=== PATIENT | female | born 1990 | race Caucasian/White ===

== ENCOUNTER → 2016-09-30 | Outpatient (CLI) | payer OTHER ==
--- NOTE | 2016-10-01 02:45 | REP ---
Clinical: Pain. Technique: AP, lateral, bilateral oblique views right foot . Findings: The osseous structures and joint spaces are intact and normal. There is no evidence for acute fracture or dislocation. Surrounding soft tissues are unremarkable. No subcutaneous emphysema or radiodense foreign body. Impression: Normal examination. No acute fracture or dislocation. Signed by Eliecer Calle MD 10/01/2016 02:35 A
== END ==
LOC: M RAD 14:17
PROVIDERS: ATTEND Nurse Practitioner Family
DX: M79.671 Pain in right foot (principal)

== ENCOUNTER → 2018-02-17 | Outpatient (CLI) | payer OTHER ==
[2018-02-17 16:26] LABS: BASO # 0.1 10^3/uL (0.0-0.2); BASO % 1.8 % (0.0-1.0); EOS # 0.1 10^3/uL (0.0-0.50); EOS % 2.1 % (0.0-3.0); HEMOGLOBIN 12.7 g/dl (12.0-15.5); IMMATURE GRANULOCYTE % 0.3 % (0-3.0); LYMPH # 2.5 10^3/uL (1.5-6.5); LYMPH % 36.5 % (24.0-44.0); MEAN CORPUSCULAR HEMOGLOBIN 28.7 pg (27.0-33.0); MEAN CORPUSCULAR HGB CONC 32.6 g/dl (32.0-36.5); MONO # 0.3 10^3/uL (0.0-0.8); MONO % 4.7 % (0.0-5.0); NEUTROPHILS # 3.7 10^3/uL (1.8-7.7); NEUTROPHILS % 54.6 % (36.0-66.0); PLATELET COUNT, AUTOMATED 239 10^3/uL (150-450); RED BLOOD COUNT 4.43 10^6/uL (4.00-5.40); RED CELL DISTRIBUTION WIDTH 12.1 % (11.5-14.5); WHITE BLOOD COUNT 6.8 10^3/uL (4.0-10.0)
[2018-02-17 17:35] LABS: ALBUMIN 4.2 GM/DL (3.2-5.2); ALBUMIN/GLOBULIN RATIO 1.45 (1.00-1.93); ALKALINE PHOSPHATASE 78 U/L (45-117); ALT/SGPT 17 U/L (12-78); ANION GAP 10 MEQ/L (8-16); AST/SGOT 14 U/L (7-37); BILIRUBIN,TOTAL 0.2 MG/DL (0.2-1.0); BLOOD UREA NITROGEN 10 MG/DL (7-18); CALCIUM LEVEL 8.9 MG/DL (8.5-10.1); CARBON DIOXIDE LEVEL 28 MEQ/L (21-32); CHLORIDE LEVEL 108 MEQ/L (98-107); CREATININE FOR GFR 0.88 MG/DL (0.55-1.30); GLOMERULAR FILTRATION RATE > 60.0 (>60); GLUCOSE, FASTING 91 MG/DL (70-100); HCG, SERUM QUANTITATIVE < 1.0 MIU/ML; LIPASE 127 U/L (73-393); POTASSIUM SERUM 4.3 MEQ/L (3.5-5.1); SODIUM LEVEL 146 MEQ/L (136-145); TOTAL PROTEIN 7.1 GM/DL (6.4-8.2)
[2018-02-17 23:43] LABS: CHLAMYDIA DNA AMPLIFICATION NEGATIVE (NEGATIVE); GC DNA AMPLIFICATION NEGATIVE (NEGATIVE)
== END ==
LOC: M LAB 16:10
DX: R10.84 Generalized abdominal pain (principal); N89.8 Other specified noninflammatory disorders of vagina
CPT/HCPCS: 83690

== ENCOUNTER → 2018-02-19 | Outpatient (CLI) | payer OTHER | LOC: M WHC 10:29 | DX: R10.84 Generalized abdominal pain (principal) | CPT/HCPCS: 76830 ==

== ENCOUNTER → 2018-08-12 | Outpatient (CLI) | payer OTHER ==
--- NOTE | 2018-08-13 02:03 | REP ---
Clinical: Cough . Comparison: 11/15/2014 . Technique: PA and lateral. Findings: The mediastinum and cardiac silhouette are normal. The lung grimaldo are clear and without acute consolidation, effusion, or pneumothorax. The skeletal structures are intact and normal. Impression: 1. No acute cardiopulmonary process. Electronically Signed by Eliecer Calle MD 08/13/2018 01:54 A
== END ==
LOC: M RAD 10:58
PROVIDERS: ATTEND Nurse Practitioner Family
DX: R05 Cough (principal)

== ENCOUNTER → 2018-10-01 | Outpatient (CLI) | payer OTHER ==
[2018-10-01 18:29] LABS: APPEARANCE, URINE CLEAR (CLEAR); BACTERIA, URINE AUTO NEGATIVE (NEGATIVE); BILIRUBIN, URINE AUTO NEGATIVE (NEGATIVE); BLOOD, URINE BLOOD NEGATIVE (NEGATIVE); COLOR, URINE YELLOW (YELLOW); GLUCOSE, URINE (UA) AUTO NEGATIVE (NEGATIVE); KETONE, URINE AUTO NEGATIVE (NEGATIVE); LEUKOCYTE ESTERASE, URINE AUTO NEGATIVE (NEGATIVE); MUCUS, URINE SMALL (NEGATIVE); NITRITE, URINE AUTO NEGATIVE (NEGATIVE); PROTEIN, URINE AUTO NEGATIVE (NEGATIVE); RBC, URINE AUTO 1 /HPF (0-3); SPECIFIC GRAVITY URINE AUTO 1.021 (1.002-1.035); SQUAMOUS EPITHELIAL CELL UR AU 2 /HPF (0-6); UROBILINOGEN, URINE AUTO 0.2 mg/dL (0.0-2.0); WBC, URINE AUTO 2 /HPF (0-3)
--- NOTE | 2018-10-02 01:17 | REP ---
Clinical: Renal stone. Technique: Single supine view of the abdomen and pelvis. Findings: Few small 2-3 mm nonobstructing left intrarenal calculi are suggested. Possible 3 mm nonobstructing right lower pole kidney stone cannot be excluded as well. Evaluation of the ureters and bladder is limited due to overlying bowel gas pattern. No bowel obstruction. No organomegaly. Skeletal structures are intact. Impression: Possible nonobstructing bilateral intrarenal calculi. Electronically Signed by Eliecer Calle MD 10/02/2018 01:10 A
== END ==
LOC: M SMT 14:45
PROVIDERS: ATTEND Nurse Practitioner Women's Health
DX: Z87.442 Personal history of urinary calculi (principal)

== ENCOUNTER 2018-10-30 15:21 | Emergency (ER) | payer OTHER ==
[~2018-10-30] VITALS: Ht 162.6 cm; Wt 54.3 kg
[2018-10-30] MEDS ORDERED: OXYC1TAB23 (15:32)
[2018-10-30] MEDS ORDERED: CLIN300C5 (15:32)
[2018-10-30 16:48] LABS: BASO # 0.1 10^3/uL (0.0-0.2); BASO % 0.9 % (0.0-1.0); EOS % 0.3 % (0.0-3.0); HEMATOCRIT 37.1 % (36.0-47.0); HEMOGLOBIN 12.3 g/dl (12.0-15.5); LYMPH # 1.9 10^3/uL (1.5-6.5); LYMPH % 24.7 % (24.0-44.0); MEAN CORPUSCULAR HEMOGLOBIN 28.7 pg (27.0-33.0); MEAN CORPUSCULAR HGB CONC 33.2 g/dl (32.0-36.5); MEAN CORPUSCULAR VOLUME 86.7 fl (80.0-96.0); MONO # 0.3 10^3/uL (0.0-0.8); MONO % 4.4 % (0.0-5.0); NEUTROPHILS # 5.3 10^3/uL (1.8-7.7); NEUTROPHILS % 69.6 % (36.0-66.0); PLATELET COUNT, AUTOMATED 208 10^3/uL (150-450); RED BLOOD COUNT 4.28 10^6/uL (4.00-5.40); WHITE BLOOD COUNT 7.7 10^3/uL (4.0-10.0)
[2018-10-30 16:57] LABS: ALBUMIN 4.4 GM/DL (3.2-5.2); ALT/SGPT 17 U/L (12-78); BILIRUBIN,DIRECT 0.3 MG/DL (0.0-0.2); BILIRUBIN,TOTAL 0.8 MG/DL (0.2-1.0); BLOOD UREA NITROGEN 22 MG/DL (7-18); CALCIUM LEVEL 8.9 MG/DL (8.5-10.1); CARBON DIOXIDE LEVEL 25 MEQ/L (21-32); CHLORIDE LEVEL 105 MEQ/L (98-107); CREATININE FOR GFR 0.78 MG/DL (0.55-1.30); GLOMERULAR FILTRATION RATE > 60.0 (>60); GLUCOSE, FASTING 78 MG/DL (70-100); LIPASE 97 U/L (73-393); POTASSIUM SERUM 4.2 MEQ/L (3.5-5.1); SODIUM LEVEL 138 MEQ/L (136-145); TOTAL PROTEIN 7.4 GM/DL (6.4-8.2)
[2018-10-30] MEDS ORDERED: ACETAMINOPHEN TAB 650MG DOSE (2X325MG) PO ONE (17:15)
[2018-10-30 17:36] LABS: HCG, SERUM QUANTITATIVE 39 MIU/ML
--- NOTE | 2018-10-30 19:02 | REPVR ---
EXAM: US Retroperitoneal Limited, Kidneys EXAM DATE/TIME: 10/30/2018 6:00 PM CLINICAL HISTORY: 28 years old, female; Abdominal pain; ; Additional info: Vaginal bleeding TECHNIQUE: Imaging protocol: Real-time ultrasound of the retroperitoneum with image documentation. Examination was focused on the kidneys. COMPARISON: CR ABDOMEN 1 VIEW (KUB) 10/01/2018 2:56 PM FINDINGS: Right kidney measures 10.8 cm in length. Left kidney measures 10.7 cm in length. Renal parenchymal echotexture and cortical thickness are normal. No solid renal mass or cyst. Mild right pelvocaliectasis. No shadowing, echogenic foci suggestive of stones. Bladder is unremarkable. IMPRESSION: Essentially unremarkable ultrasound of the kidneys and bladder. Minimal right-sided pelvocaliectasis. No shadowing renal calculus Electronically signed by: Landry Marie On 10/30/2018 19:02:22 PM
--- NOTE | 2018-10-30 19:04 | REP ---
First trimester ultrasound History: Vaginal bleeding The uterus measures 4.4 cm in transverse by 4.1 cm in AP by 7 cm in cephalocaudal dimensions. The endometrium measures 10.2 mm. There is no gestational sac in the endometrial cavity. The right ovary measures 3.7 x 2.5 x 3.5 cm. The left ovary measures 3.3 x 2.3 x 2.6 cm. A hemorrhagic follicle is present in the left ovary. This measures 1.8 x 1.8 x 1.7 cm. A moderate amount of free fluid is present in the cul-de-sac and the adnexal regions. Impression: There is no gestational sac in the endometrial cavity. This may represent an early intra versus missed . Ectopic cannot be excluded. Repeat examination may be helpful for further evaluation. Electronically Signed by Dao Jones MD 10/30/2018 06:55 P
[2018-10-30] MEDS ORDERED: KEFL500C17 PO (19:33)
[2018-10-30 19:46] VITALS: BP 124/73
== END 2018-10-30 19:44 | disposition home or self-care (01) ==
LOC: M ED 15:21
DX: Z32.01 Encounter for pregnancy test, result positive (principal); N12 Tubulo-interstitial nephritis, not specified as acute or chronic; K21.9 Gastro-esophageal reflux disease without esophagitis; Z88.8 Allergy status to other drugs, medicaments and biological substances

== ENCOUNTER → 2018-11-02 | Outpatient (CLI) | payer OTHER ==
[~2018-11-02] MED LIST: CLIN300C5; KEFL500C17 PO; OXYC1TAB23
== END ==
LOC: M LAB 15:55
PROVIDERS: ATTEND Obstetrics & Gynecology
DX: Z36.89 Encounter for other specified antenatal screening (principal); Z3A.01 Less than 8 weeks gestation of pregnancy

== ENCOUNTER → 2019-04-20 | Outpatient (REF) | payer OTHER | LOC: M SFHCPLAZ 09:47 | PROVIDERS: ATTEND Student in an Organized Health Care Education/Training Program | DX: N20.0 Calculus of kidney (principal) ==

== ENCOUNTER → 2019-04-28 | Outpatient (CLI) | payer OTHER, MEDICAID ==
--- NOTE | 2019-04-28 13:46 | REP ---
Clinical: Kidney stone. Technique: Real time mercedes scale ultrasound examination using curved array transducer. Findings: Right kidney measures 11.7 x 6.8 x 4.1 cm and demonstrates mild hydronephrosis along with suspected 15 mm lower pole calculus and 1.4 cm lower pole cyst with possible layering milk of calcium. The left kidney is normal in appearance without hydronephrosis, cyst or nephrolithiasis and measures 11.2 x 4.8 x 5.6 cm. Bladder is relatively normal and bilateral ureteral jets are identified. Intrauterine at approximately 27 weeks noted. heart rate equals 131 beats per minute. Impression: 1. Right-sided nephrolithiasis as described above. 2. Mild right-sided hydronephrosis is nonspecific and may be induced as a normal right ureteral jet is noted within the bladder. Electronically Signed by Eliecer Calle MD 04/28/2019 01:37 P
== END ==
LOC: M RAD 12:35
PROVIDERS: ATTEND Student in an Organized Health Care Education/Training Program
DX: O26.832 Pregnancy related renal disease, second trimester (principal); N20.0 Calculus of kidney

== ENCOUNTER → 2019-05-12 | Outpatient (REF) | payer OTHER, MEDICAID | LOC: M SFHCPLAZ 10:20 | PROVIDERS: ATTEND Family Medicine | DX: Z53.9 Procedure and treatment not carried out, unspecified reason (principal) ==

== ENCOUNTER → 2019-07-26 | Outpatient (REF) | payer MEDICAID ==
[2019-07-26 14:15] LABS: APPEARANCE, URINE CLEAR (CLEAR); BACTERIA, URINE AUTO NEGATIVE (NEGATIVE); BILIRUBIN, URINE AUTO NEGATIVE (NEGATIVE); BLOOD, URINE BLOOD 1+ (NEGATIVE); COLOR, URINE YELLOW (YELLOW); GLUCOSE, URINE (UA) AUTO NEGATIVE (NEGATIVE); KETONE, URINE AUTO NEGATIVE (NEGATIVE); LEUKOCYTE ESTERASE, URINE AUTO NEGATIVE (NEGATIVE); MUCUS, URINE SMALL (NEGATIVE); NITRITE, URINE AUTO NEGATIVE (NEGATIVE); PROTEIN, URINE AUTO NEGATIVE (NEGATIVE); RBC, URINE AUTO 10 /HPF (0-3); SQUAMOUS EPITHELIAL CELL UR AU 0 /HPF (0-6); UROBILINOGEN, URINE AUTO 0.2 mg/dL (0.0-2.0); WBC, URINE AUTO 0 /HPF (0-3)
== END ==
LOC: M SMT 13:07
PROVIDERS: ATTEND Nurse Practitioner Women's Health
DX: N20.0 Calculus of kidney (principal)

== ENCOUNTER 2019-08-19 06:50 | Day surgery (SDC) | payer MEDICAID ==
[~2019-08-19] VITALS: Ht 162.6 cm; Wt 59.4 kg
[~2019-08-19 06:50] MED LIST changes: +HM I200C PO; +LR 1,000 ML IV ONE; +TYLETAB14 PO; +ceFAZolin SOD 2 GM in IV 1 EA IV ONE
[2019-08-19 08:00] LABS: INR 0.97; PROTHROMBIN TIME 12.6 SECONDS (11.8-14.0)
[2019-08-19 08:16] LABS: HCG, SERUM QUALITATIVE NEGATIVE (NEGATIVE)
[2019-08-19] MEDS ORDERED: propofoL 500 MG/50 ML VIAL As Ordered ONE (08:39)
[2019-08-19] MEDS ORDERED: LIDOCAINE 2% INJ 100 MG/5 ML SDV (FOR ANES.) As Ordered ONE (08:39)
--- NOTE | 2019-08-19 09:47 | REP ---
KUB ABDOMEN AND PELVIS: KUB film of abdomen and pelvis performed. There are two adjacent calcifications overlying the lower pole of the right kidney, measuring 6 mm in maximum diameter. There are two or three punctate calcifications overlying the mid right kidney and a single punctate calcification overlying the upper pole of the right kidney. There is a punctate calcification seen overlying the left kidney. Bowel gas pattern is normal. IMPRESSION: Bilateral renal calculi as above. Electronically Signed by Hima Lai MD 08/19/2019 04:49 P
--- NOTE | 2019-08-19 10:00 | RO ---
DATE OF PROCEDURE: 08/19/2019 PREPROCEDURE DIAGNOSIS: Right kidney stones. POSTPROCEDURE DIAGNOSIS: Right kidney stones. PROCEDURE: Right extracorporeal shock wave lithotripsy. SURGEON: Leandro Olvera MD ART GLASS DESIGNER: None ANESTHESIA: Monitored anesthesia care (MAC). OPERATIVE INDICATIONS: This is a 29-year-old female who was found to have right-sided kidney stones measuring up to 6-7 mm in size. She was brought to the operating room today for treatment. DESCRIPTION OF PROCEDURE: The patient was brought to the operating room and MAC anesthesia was administered. Prophylactic antibiotics were infused. She was then placed in supine position in preparation first for a right-sided extracorporeal shock wave lithotripsy. Fluoroscopy was utilized to monitor stone position and fragmentation throughout the procedure. Shock waves were then delivered to the right-sided kidney stones, ungated. There were no arrhythmias. The stones did appear to fragment well. After 2500 shocks the procedure was concluded. The patient was then awakened from anesthesia and transported to the recovery room in stable condition. ESTIMATED BLOOD LOSS: 0 mL. COMPLICATIONS: None. SPECIMENS: None. PLAN: The patient will followup in clinic in a few weeks with imaging prior to assess for residual stone burden. [facility]SE[facility]
[2019-08-19] MEDS ORDERED: fentaNYL 100 MCG/2 ML INJECTION (J3010) IV PRN (10:15)
[2019-08-19] MEDS ORDERED: LR 1,000 ML IV SCH (10:15)
[2019-08-19] MEDS ORDERED: ONDANSETRON 4MG/2ML VIAL (J2405) IV PRN (10:15)
[2019-08-19] MEDS ORDERED: PERCOCET 5MG/325MG TAB PO PRN (10:15)
[2019-08-19 10:51] VITALS: BP 110/65
== END 2019-08-19 11:10 | disposition home or self-care (01) ==
LOC: M SDC 06:50
PROVIDERS: ATTEND Urology
DX: N20.0 Calculus of kidney (principal); N13.30 Unspecified hydronephrosis; J45.909 Unspecified asthma, uncomplicated; G43.909 Migraine, unspecified, not intractable, without status migrainosus; F43.10 Post-traumatic stress disorder, unspecified; F42.9 Obsessive-compulsive disorder, unspecified; M51.26 Other intervertebral disc displacement, lumbar region; K21.9 Gastro-esophageal reflux disease without esophagitis; Z87.442 Personal history of urinary calculi; Z79.899 Other long term (current) drug therapy; Z91.040 Latex allergy status; Z88.8 Allergy status to other drugs, medicaments and biological substances; Z91.048 Other nonmedicinal substance allergy status
CPT/HCPCS: 36415; 50590; 74018; 84703; 85610; J0690

== ENCOUNTER → 2021-04-09 | Outpatient (REF) | payer MEDICAID, OTHER ==
[~2021-04-09] MED LIST changes: +CLIN-250; -CLIN300C5; -HM I200C PO; +IBUP200C34 PO; -LR 1,000 ML IV ONE; -ceFAZolin SOD 2 GM in IV 1 EA IV ONE
== END ==
LOC: M WUC 19:49
PROVIDERS: ATTEND Physician Assistant
DX: J00 Acute nasopharyngitis [common cold] (principal)

== ENCOUNTER → 2021-10-17 | Outpatient (REF) | payer OTHER ==
[2021-10-17 17:18] LABS: APPEARANCE, URINE CLEAR (CLEAR); BACTERIA, URINE AUTO NEGATIVE (NEGATIVE); BILIRUBIN, URINE AUTO NEGATIVE (NEGATIVE); BLOOD, URINE BLOOD NEGATIVE (NEGATIVE); COLOR, URINE YELLOW (YELLOW); GLUCOSE, URINE (UA) AUTO NEGATIVE (NEGATIVE); KETONE, URINE AUTO NEGATIVE (NEGATIVE); LEUKOCYTE ESTERASE, URINE AUTO NEGATIVE (NEGATIVE); MUCUS, URINE SMALL (NEGATIVE); NITRITE, URINE AUTO NEGATIVE (NEGATIVE); PROTEIN, URINE AUTO NEGATIVE (NEGATIVE); RBC, URINE AUTO 6 /HPF (0-3); SPECIFIC GRAVITY URINE AUTO 1.016 (1.002-1.035); SQUAMOUS EPITHELIAL CELL UR AU 5 /HPF (0-6); UROBILINOGEN, URINE AUTO 0.2 mg/dL (0.0-2.0); WBC, URINE AUTO 2 /HPF (0-3)
== END ==
LOC: M SMT 16:43
PROVIDERS: ATTEND Nurse Practitioner Women's Health
DX: N39.0 Urinary tract infection, site not specified (principal)

== ENCOUNTER → 2022-03-05 | Outpatient (CLI) | payer OTHER | LOC: M PLAIMG 15:58 | PROVIDERS: ATTEND Student in an Organized Health Care Education/Training Program | DX: M54.42 Lumbago with sciatica, left side (principal) ==

== ENCOUNTER → 2022-04-14 | Outpatient (CLI) | payer OTHER ==
[~2022-04-14] MED LIST changes: +SERT50TA29 PO
== END ==
LOC: M LABSMTC 09:39
PROVIDERS: ATTEND Anesthesiology
DX: Z01.812 Encounter for preprocedural laboratory examination (principal); Z20.822 Contact with and (suspected) exposure to COVID-19
CPT/HCPCS: 87635; C9803

== ENCOUNTER 2022-04-17 08:07 | Day surgery (SDC) | payer OTHER ==
[~2022-04-17] VITALS: Ht 162.6 cm; Wt 53.5 kg
[~2022-04-17 08:07] MED LIST changes: +ceFAZolin SOD 2 GM in IV 1 EA IV ONE
[2022-04-17] MEDS ORDERED: fentaNYL 100 MCG/2 ML INJECTION As Ordered ONE (08:50)
[2022-04-17] MEDS ORDERED: MIDAZOLAM INJ 2MG/2ML VIAL (J2250 PER 1MG) As Ordered ONE (08:50)
[2022-04-17] MEDS ORDERED: LIDOCAINE 2% 100MG/5ML SDV (FOR ANES.) As Ordered ONE (08:51)
[2022-04-17] MEDS ORDERED: KETOROLAC 60MG 2ML VIAL As Ordered ONE (08:51)
[2022-04-17] MEDS ORDERED: ONDANSETRON 4MG 2ML VIAL As Ordered ONE (08:51)
[2022-04-17] MEDS ORDERED: propofoL 200 MG/20 ML VIAL As Ordered ONE (08:51)
[2022-04-17] MEDS ORDERED: LR 1,000 ML IV SCH ×2 (09:15→10:50)
[2022-04-17] MEDS ORDERED: MACR100C43 PO (10:24)
[2022-04-17] MEDS ORDERED: OXYB5TAB10 PO (10:24)
[2022-04-17] MEDS ORDERED: PYRI1TAB5 PO (10:24)
[2022-04-17] MEDS ORDERED: HYDR-3713 PO (10:24)
[2022-04-17] MEDS ORDERED: ONDANSETRON 4MG 2ML VIAL IV PRN (10:50)
[2022-04-17] MEDS ORDERED: fentaNYL 100 MCG/2 ML INJECTION IV PRN (10:50)
[2022-04-17] MEDS ORDERED: HYDROMORPHONE HCL 0.5 MG/ 0.5 ML SYRINGE (J1170 PER 1) IV PRN (10:50)
[2022-04-17] MEDS ORDERED: oxyCODONE 5MG TAB PO PRN (10:50)
[2022-04-17 11:30] VITALS: BP 121/77
== END 2022-04-17 11:47 | disposition home or self-care (01) ==
LOC: M SDC 08:07
PROVIDERS: ATTEND Urology
DX: N13.30 Unspecified hydronephrosis (principal); N20.0 Calculus of kidney; Z98.51 Tubal ligation status; F17.200 Nicotine dependence, unspecified, uncomplicated; Z91.048 Other nonmedicinal substance allergy status; Z91.040 Latex allergy status; Z79.899 Other long term (current) drug therapy; Z88.8 Allergy status to other drugs, medicaments and biological substances; G43.909 Migraine, unspecified, not intractable, without status migrainosus; F32.A Depression, unspecified; F41.9 Anxiety disorder, unspecified; Z90.89 Acquired absence of other organs
CPT/HCPCS: 52352; 52356; 74420; C1769; C2617; J0690; J1100; J1885; J2250; J2405; J3010